=== PATIENT | female | born 1975 | race Caucasian/White ===

== ENCOUNTER → 2022-10-28 | Outpatient (CLI) | payer SELFPAY ==
[~2022-10-28] MED LIST: HYDACE5 PO; NAPR500 PO; SULTRIDS PO; [UNRECOGNIZED DRUG - OTHER]; [UNRECOGNIZED DRUG - OTHER]
[2022-10-28 19:03] LABS: BASOPHILS ABSOLUTE AUTO 0.04 K/mm3 (0.00-0.23); BASOPHILS PERCENT AUTO 0 % (0-2); EOSINOPHILS ABSOLUTE AUTO 0.04 K/mm3 (0.00-0.68); EOSINOPHILS PERCENT AUTO 0 % (0-6); Hematocrit 36.7 % (33.0-51.0); Hemoglobin 11.7 g/dL (11.5-16.0); IMMATURE GRAN ABSOLUTE AUTO 0.02 K/mm3 (0.00-0.10); IMMATURE GRAN PERCENT AUTO 0 % (0-1); LYMPHOCYTES ABSOLUTE AUTO 2.17 K/mm3 (0.84-5.20); LYMPHOCYTES PERCENT AUTO 22 % (21-46); MONOCYTES PERCENT AUTO 7 % (4-13); Mean Corpuscular HGB 26.3 pg (26.0-34.0); Mean Corpuscular HGB Conc 31.9 g/dL (31.5-36.5); Mean Corpuscular Volume 83 fL (80-100); Mean Platelet Volume 9.3 fL (9.1-12.4); NEUTROPHILS PERCENT AUTO 70 % (41-73); Platelet Count 414 K/mm3 (150-400); RDW Coefficient Variation 14.2 % (11.7-14.2); RDW Standard Deviation 42.7 fL (35.1-46.3); Red Blood Cell Count 4.45 M/mm3 (3.80-5.20); White Blood Cell Count 9.87 K/mm3 (4.00-11.30)
[2022-10-28 19:17] LABS: Prolactin 115.7 ng/mL; Thyroxine (T4) 9.3 ug/dL (4.8-13.9)
[2022-10-28 19:21] LABS: Albumin, Blood 3.7 g/dL (3.4-5.0); Bilirubin, Total 0.3 mg/dL (0.1-1.0); Bun/Creatinine Ratio 17.5 (12.0-20.0); Calcium, Blood 8.9 mg/dL (8.5-10.1); Creatinine, Blood 0.8 mg/dL (0.40-1.00); Globulin, Blood 3.7 g/dL (2.2-4.0); Potassium, Blood 4.4 mmol/L (3.5-5.5); Thyroid Stimulating Hormone 0.689 uIU/mL (0.360-4.800); Total Protein, Blood 7.4 g/dL (6.4-8.2)
== END | disposition home or self-care (01) ==
LOC: LAB SHORT 12:17
PROVIDERS: Family Medicine
DX: E03.9 Hypothyroidism, unspecified (principal); R53.83 Other fatigue
CPT/HCPCS: 80053; 84146; 84436; 84443; 85025

== ENCOUNTER → 2023-06-19 | Outpatient (CLI) | payer SELFPAY ==
[2023-06-19 11:42] LABS: White Blood Cell Count 13.89 K/mm3 (4.00-11.30)
[2023-06-19 11:43] LABS: BASOPHILS ABSOLUTE AUTO 0.04 K/mm3 (0.00-0.23); BASOPHILS PERCENT AUTO 0 % (0-2); EOSINOPHILS ABSOLUTE AUTO 0.05 K/mm3 (0.00-0.68); EOSINOPHILS PERCENT AUTO 0 % (0-6); Hematocrit 36.1 % (33.0-51.0); Hemoglobin 11.6 g/dL (11.5-16.0); IMMATURE GRAN ABSOLUTE AUTO 0.04 K/mm3 (0.00-0.10); IMMATURE GRAN PERCENT AUTO 0 % (0-1); LYMPHOCYTES ABSOLUTE AUTO 1.76 K/mm3 (0.84-5.20); LYMPHOCYTES PERCENT AUTO 13 % (21-46); MONOCYTES ABSOLUTE AUTO 1.35 K/mm3 (0.16-1.47); MONOCYTES PERCENT AUTO 10 % (4-13); Mean Corpuscular HGB 26.2 pg (26.0-34.0); Mean Corpuscular HGB Conc 32.1 g/dL (31.5-36.5); Mean Corpuscular Volume 82 fL (80-100); Mean Platelet Volume 9.6 fL (9.1-12.4); NEUTROPHILS ABSOLUTE AUTO 10.65 K/mm3 (1.96-9.15); NEUTROPHILS PERCENT AUTO 77 % (41-73); Platelet Count 358 K/mm3 (150-400); RDW Coefficient Variation 14.6 % (11.7-14.2); Red Blood Cell Count 4.42 M/mm3 (3.80-5.20)
[2023-06-19 11:55] LABS: Albumin, Blood 3.5 g/dL (3.4-5.0); Albumin/Globulin Ratio 0.9 (0.8-1.8); Bilirubin, Total 0.5 mg/dL (0.1-1.0); Calcium, Blood 8.8 mg/dL (8.5-10.1); Creatinine, Blood 0.71 mg/dL (0.40-1.00); Potassium, Blood 3.8 mmol/L (3.5-5.5); Total Protein, Blood 7.5 g/dL (6.4-8.2)
== END ==
LOC: LAB 10:37 → LAB SHORT 10:37
PROVIDERS: Physician Assistant
DX: R10.32 Left lower quadrant pain (principal)
CPT/HCPCS: 80053; 85025

== ENCOUNTER → 2023-06-25 | Outpatient (CLI) | payer SELFPAY | LOC: LAB SHORT 11:00 | DX: R10.32 Left lower quadrant pain (principal) | CPT/HCPCS: 87086; 87147 ==

== ENCOUNTER → 2023-08-10 | Outpatient (CLI) | payer OTHER ==
[2023-08-11 16:10] LABS: HPV 16 Negative (Negative); HPV 18 Negative (Negative); HPV OTHER HR TYPES Negative (Negative)
== END ==
LOC: LAB 12:44 → LAB SHORT 12:44
PROVIDERS: Obstetrics & Gynecology
DX: Z01.419 Encounter for gynecological examination (general) (routine) without abnormal findings (principal)
CPT/HCPCS: 87624; G0145

== ENCOUNTER → 2023-08-10 | Outpatient (CLI) | payer OTHER | LOC: LAB 15:35 → LAB SHORT 15:35 | DX: D26.0 Other benign neoplasm of cervix uteri (principal) | CPT/HCPCS: 88305 ==

== ENCOUNTER 2023-08-31 08:50 | Day surgery (SDC) | payer OTHER ==
[~2023-08-31] VITALS: Ht 162.6 cm; Wt 97.1 kg
[2023-08-31] VITALS (24 sets, daily range): BP systolic 119–141; BP diastolic 67–88
[~2023-08-31 08:50] MED LIST changes: +MASOPHEN325 M3 PO; +OZEMPIC0.25 MG/02 SQ; +PANT20 PO; +PROBIOTIC1 EA14 PO
[2023-08-31] MEDS ORDERED: CYCL10 PO (09:11)
--- NOTE | 2023-08-31 10:04 | NUR ---
WEDDING RINGS (2) REMOVED AND PLACED INTO BAGGIE WITH PT LABEL AND INTO BELONGINGS BAG, PLACED IN SWEATHSHIRT POCKET. BELONGINGS BAGS IS UNDERNEATH PT GURNEY.
--- NOTE | 2023-08-31 13:55 | NUR ---
ARRIVED TO ROOM VIA JOY LUCIANO, DROWSY, FAMILY AT BEDSIDE, ORIENTED TO ROOM AND CALL LIGHT, MONITOR VS AND ANY CHANGES.
--- NOTE | 2023-08-31 17:39 | NUR ---
SUMMARY VSS, C/O NAUSEA AND DIZZINESS EARLIER TODAY WHEN ASSISTED TO AMBULATE TO THE BATHROOM, PT WAS ABLE TO VOID WITHOUT DIFFICULTY, THIS EVENING PT ASKED TO AMBULATE IN THE [place], PT BECAME DIZZY AND NAUSEOUS, BP 134/82, HR 98, PT ASSISTED TO RECLINER CHAIR, ZOFRAN GIVEN FOR NAUSEA, COOL WASHCLOTH TO FOREHEAD, NO OTHER CHANGES THIS SHIFT.
--- NOTE | 2023-08-31 18:29 | NUR ---
PT REPORTS FEELING BETTER, DENIES ANY NAUSEA, ASSISTED BACK TO BED, NO OTHER CHANGES THIS SHIFT.
[2023-09-01 04:32] VITALS: BP 117/83
[2023-09-01 06:37] LABS: BASOPHILS ABSOLUTE AUTO 0.03 K/mm3 (0.00-0.23); BASOPHILS PERCENT AUTO 0 % (0-2); EOSINOPHILS PERCENT AUTO 0 % (0-6); Hematocrit 32.9 % (33.0-51.0); Hemoglobin 10.2 g/dL (11.5-16.0); IMMATURE GRAN ABSOLUTE AUTO 0.08 K/mm3 (0.00-0.10); IMMATURE GRAN PERCENT AUTO 0 % (0-1); LYMPHOCYTES ABSOLUTE AUTO 1.75 K/mm3 (0.84-5.20); LYMPHOCYTES PERCENT AUTO 9 % (21-46); MONOCYTES ABSOLUTE AUTO 1.27 K/mm3 (0.16-1.47); MONOCYTES PERCENT AUTO 7 % (4-13); Mean Corpuscular HGB 25.3 pg (26.0-34.0); Mean Corpuscular Volume 82 fL (80-100); Mean Platelet Volume 9.3 fL (9.1-12.4); NEUTROPHILS ABSOLUTE AUTO 15.44 K/mm3 (1.96-9.15); NEUTROPHILS PERCENT AUTO 83 % (41-73); Platelet Count 370 K/mm3 (150-400); RDW Coefficient Variation 14.9 % (11.7-14.2); RDW Standard Deviation 44.5 fL (35.1-46.3); Red Blood Cell Count 4.03 M/mm3 (3.80-5.20); White Blood Cell Count 18.57 K/mm3 (4.00-11.30)
--- NOTE | 2023-09-01 07:11 | NUR ---
POD 1 S/P LAVH. PT VSS T/O NIGHT. INCISIONS CDI. PT STRUGGLED W/N/V FOR FIRST HALF OF NIGHT, IMPROVED THIS AM. PAIN MGD W/TORADOL ADN TYLENOL W/REP RELIEF, DECLINED NEED FOR ADDITIONAL PAIN MEDS. INCISIONS CDI, ABD SOFT TO PALP. PT ESAU SMALL AMT PO THIS AM, REP +SM AMT FLATUS, IS VOIDING URINE W/O DIFFICULTY, CHANGED MABLE PAD X2 W/LIGHT SS SPOTTING. PT UP OOB W/SBA, DENIED DIZZINESS THIS AM. PT EAGER TO D/C HOME THIS AM.
[2023-09-01 07:13] VITALS: BP 119/75
--- NOTE | 2023-09-01 08:39 | NUR ---
REPORTS FEELING "MUCH BETTER" TODAY, DENIES ANY NAUSEA OR DIZZINESS, TOLERATING REGULAR DIET WELL, REPORTS HAVING ADEQUATE PAIN CONTROL AND VOIDING WITHOUT DIFFICULTY, ENCOURAGED TO AMBULATE DOWN THE HALLS, PLAN TO DC HOME THIS AM.
--- NOTE | 2023-09-01 10:34 | NUR ---
DC'D HOME THIS AM, DC INSTRUCTIONS GIVEN, VERBALIZED UNDERSTANDING.
== END 2023-09-01 10:20 | disposition home or self-care (01) ==
LOC: ORSCMMR 08:50 → ORD 10:15 → SURS 13:31 → ORSCMMR 09-01 10:20
PROVIDERS: Obstetrics & Gynecology
PROC: 0UT7FZZ Resection of Bilateral Fallopian Tubes, Via Natural or Artificial Opening With Percutaneous Endoscopic Assistance (ICD-10-PCS; principal; 2023-08-31 10:15)
PROC: 0UT9FZZ Resection of Uterus, Via Natural or Artificial Opening With Percutaneous Endoscopic Assistance (ICD-10-PCS; principal; 2023-08-31 10:15)
DX: D25.2 Subserosal leiomyoma of uterus (principal); R10.2 Pelvic and perineal pain; N83.8 Other noninflammatory disorders of ovary, fallopian tube and broad ligament; K66.0 Peritoneal adhesions (postprocedural) (postinfection); Z87.891 Personal history of nicotine dependence; E66.9 Obesity, unspecified; Z68.36 Body mass index [BMI] 36.0-36.9, adult; Z79.899 Other long term (current) drug therapy
CPT/HCPCS: 36415; 82947; 85025; 86850; 86900; 86901; 88307; A9270; C9113; J1100; J1170; J1580; J1650; J1885; J2250; J2405; J2704; J2765; J3010; J7120

== ENCOUNTER 2024-06-15 09:40 | Emergency (ER) | payer OTHER ==
[~2024-06-15] VITALS: Ht 162.6 cm; Wt 83.9 kg
[~2024-06-15 09:40] MED LIST changes: +CYCL10 PO
[2024-06-15 09:46] VITALS: BP 121/84
[2024-06-15] MEDS ORDERED: Clindamycin HCl 150 MG Cap PO ONE (11:40)
[2024-06-15] MEDS ORDERED: CLIN300 PO (11:48)
== END 2024-06-15 12:16 | disposition home or self-care (01) ==
LOC: ER 09:40
DX: R21 Rash and other nonspecific skin eruption (principal); Z87.891 Personal history of nicotine dependence; Z79.899 Other long term (current) drug therapy; Z88.0 Allergy status to penicillin
CPT/HCPCS: 76604; 99283-25; A9270

== ENCOUNTER 2024-09-14 07:05 | Day surgery (SDC) | payer OTHER ==
[2024-09-14] VITALS (7 sets, daily range): BP systolic 111–124; BP diastolic 77–83
[~2024-09-14] VITALS: Ht 162.6 cm; Wt 81.6 kg
[~2024-09-14 07:05] MED LIST changes: +CLIN300 PO; +Cabergoline0.5 MG PO; +MAGNESIUM OXID500 MG PO; +Vitamin D1000 UNI1 PO
[2024-09-14] MEDS ORDERED: Lactated Ringer's 1,000 ML IV SCH (07:40)
[2024-09-14] MEDS ORDERED: ACET500 PO (07:52)
--- NOTE | 2024-09-14 08:06 | NUR ---
Ambulatory in Day SurgeryPre-Op teaching done. Pt verbalizes understanding. History, Chart, Medications and Allergies reviewed before start of procedure.Patient confirms NPO status and agrees with scheduled surgery. Patient reports completing Chlorhexadine shower X2 prior to admission to hospital.Patient States Post-Procedure ride home has been arranged.
[2024-09-14] MEDS ORDERED: Acetaminophen 500 MG Tab PO ONE (08:30)
[2024-09-14] MEDS ORDERED: Bupivacaine 0.5% HCl 5 MG/ML 30MLVIAL ONE (08:32)
[2024-09-14] MEDS ORDERED: propofoL 60 ML IV ONE (08:35)
[2024-09-14] MEDS ORDERED: Midazolam HCl 1MG / ML 2ML Vial ONE (08:35)
[2024-09-14] MEDS ORDERED: Dexamethasone Sod Phos 10 MG/ML 1ML VIAL ONE (08:49)
[2024-09-14] MEDS ORDERED: Ondansetron HCl 2 MG / ML 2ML Vial ONE (08:49)
[2024-09-14] MEDS ORDERED: FentaNYL Citrate 50 MCG/ML 2 ML Injection ONE (08:50)
--- NOTE | 2024-09-14 09:06 | NUR ---
09/14/24 0906 Carmen Leo 2G ANCEF GIVEN BY ANESTHESIA AT 0903
[2024-09-14] MEDS ORDERED: HYDROcodone 5-APAP 325 TAB PO PRN (09:40)
--- NOTE | 2024-09-14 10:41 | NUR ---
Patient up to Ambulate independently. Gait steady. Discharge instructions reviewed with patient. Patient verbalizes understanding. Copy given to patient to take home. Discharged via wheelchair to private car for ride home.
== END 2024-09-14 10:54 | disposition home or self-care (01) ==
LOC: ORSCMMR 07:05 → ORD 08:45 → ORSCMMR 08:45
PROVIDERS: Surgery
PROC: 0HBU0ZZ Excision of Left Breast, Open Approach (ICD-10-PCS; principal; 2024-09-14 08:45)
DX: D24.2 Benign neoplasm of left breast (principal); K21.9 Gastro-esophageal reflux disease without esophagitis; Z79.85 Long-term (current) use of injectable non-insulin antidiabetic drugs; Z79.899 Other long term (current) drug therapy; Z87.891 Personal history of nicotine dependence
CPT/HCPCS: 76098; 88307; A9270; J1100; J2250; J2405; J2704; J3010; J7120